=== PATIENT | female | born 1940 | race Caucasian/White ===

== ENCOUNTER 2017-01-20 17:52 | Emergency (ER) | payer MEDICARE ==
[2017-01-20] MEDS ORDERED: IPRATROPIUM/ALBUTEROL 3 ML VIAL NEB ONE (18:26)
--- NOTE | 2017-01-20 18:41 | ED.PDOC ---
History of Present Illness - General Chief Complaint: Respiratory Problem Stated Complaint: shortness of breath,sore throat Time Seen by Provider: 01/20/17 18:21 Source: patient, RN notes reviewed, Vital Signs reviewed, family - Niece- caregiver Exam Limitations: clinical condition - History of Present Illness Initial Comments: Patient is a 76 y/o female who started feeling weak for the past 3 days. Today , she has had significant shortness of breath. Patient has not had any fever or chills and denies any chest pain. She is very fatigued and has difficulty staying awake to answer questions. Patient has a history of COPD. She last had a breathing treatment at 1700. Timing/Duration: getting worse, other - 3 days Severity: severe Activities at Onset: none Possible Cause: unknown cause Improving Factors: nothing Worsening Factors: movement Associated Symptoms: cough, weakness, wheezing Respiratory Risk Factors: no cause identified Allergies/Adverse Reactions: Allergies Morphine Adverse Reaction (Verified 09/27/16 18:59) Other over sedation Home Medications: Ambulatory Orders Acetaminophen W/ Codeine [Tylenol W/ CODEINE #3] 1 ea PO TID 09/25/15 Citalopram Hydrobromide 20 mg PO DAILY 09/25/15 Digoxin [Lanoxin] 0.125 mg PO DAILY 09/25/15 Oxymorphone HCl [Opana ER (Crush Resistant] 10 mg PO Q12HR 09/25/15 Tizanidine HCl 4 mg PO TID 09/25/15 Alendronate Sodium [Fosamax] 70 mg PO WKLY 01/20/17 Atorvastatin Calcium [Lipitor] 40 mg PO BEDTIME 01/20/17 Carvedilol 6.25 mg PO BID 01/20/17 Review of Systems - Review of Systems Constitutional: Denies: chills, fever EENTM: States: no symptoms reported Respiratory: States: cough, short of breath, wheezing Cardiology: States: no symptoms reported. Denies: chest pain, edema Gastrointestinal/Abdominal: States: no symptoms reported Genitourinary: States: no symptoms reported Musculoskeletal: States: no symptoms reported Skin: States: no symptoms reported Neurological: States: weakness Endocrine: States: no symptoms reported Hematologic/Lymphatic: States: no symptoms reported All other Systems: Reviewed and Negative Past Medical History (General) - Patient Medical History Hx Seizures: No Hx Stroke: Yes - 1995 Hx Dementia: Yes Hx Asthma: No Hx of COPD: Yes Hx Cardiac Disorders: Yes - A-Fib Hx Congestive Heart Failure: No Hx Pacemaker: No Hx Hypertension: No Hx Diabetes: No Hx MRSA: No Surgical History: cholecystectomy - Vaccination History Hx Influenza Vaccination: No Hx Pneumococcal Vaccination: Yes - Social History Hx Tobacco Use: Yes Hx Alcohol Use: No Hx Substance Use: No Hx Substance Use Treatment: No Hx Depression: No Hx Physical Abuse: No Hx Emotional Abuse: No Family Medical History - Family History Mother Living Status: Hx Family Diabetes: Yes Physical Exam - Physical Exam General Appearance: Comfortable, Frail, Lethargic, Well Groomed Eyes, Ears, Nose, Throat Exam: normal ENT inspection Respiratory: chest non-tender, decreased breath sounds, accessory muscle use, rales, rhonchi, wheezing, expiration, inspiration Cardiovascular/Chest: regular rate, rhythm, no edema, no murmur Gastrointestinal/Abdominal: normal bowel sounds, non tender, soft, no organomegaly Extremity: normal inspection, no pedal edema, no calf tenderness Neurologic: disoriented x 3 - disoriented x 2 Skin Exam: pallor Progress - Results/Orders Results/Orders: 01/20/17 01/20/17 01/20/17 18:08 18:23 18:54 Temperature 96.5 F L Pulse Rate 62 Pulse Rate [ 77 Left Brachial] Respiratory 24 24 22 Rate Blood Pressure 114/82 [Left Arm] O2 Sat by Pulse 85 L 96 Oximetry 01/20/17 19:08 Temperature Pulse Rate Pulse Rate [ 70 Left Brachial] Respiratory 20 Rate Blood Pressure 94/54 [Left Arm] O2 Sat by Pulse 97 Oximetry 01/20/17 18:26 URINALYSIS Stat 01/20/17 18:30 EKG .ONCE 01/20/17 18:50 BLOOD CULTURE Stat 01/20/17 19:00 SPUTUM CULTURE Stat Laboratory Results WBC 12.4 K/mm3 (4.8-10.8) H 01/20/17 18:50 RBC 3.67 M/mm3 (4.20-5.40) L 01/20/17 18:50 Hgb 11.4 gm/dL (12.0-16.0) L 01/20/17 18:50 Hct 35.2 % (36.0-47.0) L 01/20/17 18:50 MCV 95.7 fl (81.0-99.0) 01/20/17 18:50 MCH 31.0 pg (27.0-31.0) 01/20/17 18:50 MCHC 32.4 g/dL (33.0-37.0) L 01/20/17 18:50 RDW 16.0 % (11.5-14.5) H 01/20/17 18:50 Plt Count 158 K/mm3 (130-400) 01/20/17 18:50 MPV 8.5 fl (7.40-10.4) 01/20/17 18:50 Absolute Neuts (auto) 10.70 K/uL (1.8-6.8) H 01/20/17 18:50 Absolute Lymphs (auto) 1.10 K/uL (1.0-3.4) 01/20/17 18:50 Absolute Monos (auto) 0.60 K/uL (0.2-0.8) 01/20/17 18:50 Absolute Eos (auto) 0.00 K/uL (0.0-0.4) 01/20/17 18:50 Absolute Basos (auto) 0.00 K/uL (0.0-0.1) 01/20/17 18:50 Neutrophils % 86.2 % (42.0-78.0) H 01/20/17 18:50 Lymphocytes % 9.0 % (20.0-50.0) L 01/20/17 18:50 Monocytes % 4.5 % (2.0-9.0) 01/20/17 18:50 Eosinophils % 0.1 % (1.0-5.0) L 01/20/17 18:50 Basophils % 0.2 % (0.0-2.0) 01/20/17 18:50 PT 12.4 SECONDS (9.4-12.5) 01/20/17 18:50 INR 1.100 01/20/17 18:50 PTT (SP) 29.7 SECONDS (25.1-36.5) 01/20/17 18:50 D-Dimer, Quantitative 516 ng/mL (0-230) H* 01/20/17 18:50 Sodium 132 mmol/L (135-145) L 01/20/17 18:50 Potassium 5.4 mmol/L (3.6-5.0) H 01/20/17 18:50 Chloride 99 mmol/L (101-111) L 01/20/17 18:50 Carbon Dioxide 25 mmol/L (21-31) 01/20/17 18:50 Anion Gap 13.4 (12-18) 01/20/17 18:50 BUN 68 mg/dL (7-18) H 01/20/17 18:50 Creatinine 2.32 mg/dL (0.6-1.3) H 01/20/17 18:50 BUN/Creatinine Ratio 29.3 (10-20) H 01/20/17 18:50 Random Glucose 134 mg/dL (70-105) H 01/20/17 18:50 Serum Osmolality 286.3 mOsm/L (275-295) 01/20/17 18:50 Lactic Acid 2.0 mmol/L (0.5-2.2) 01/20/17 18:50 Calcium 8.0 mg/dL (8.4-10.2) L 01/20/17 18:50 Magnesium 1.8 mg/dL (1.8-2.5) 01/20/17 18:50 Total Bilirubin 1.0 mg/dL (0.2-1.0) 01/20/17 18:50 Direct Bilirubin 0.3 mg/dL (0-0.2) H 01/20/17 18:50 Indirect Bilirubin 0.7 mg/dL (0.2-0.8) 01/20/17 18:50 AST 41 IU/L (10-42) 01/20/17 18:50 ALT 20 IU/L (10-60) 01/20/17 18:50 Alkaline Phosphatase 70 IU/L (42-121) 01/20/17 18:50 Creatine Kinase 503 IU/L (26-140) H* 01/20/17 18:50 CK-MB (CK-2) 11.7 ng/mL (0.0-4.4) H* 01/20/17 18:50 CK-MB (CK-2) % 2.33 % (0.0-4.3) 01/20/17 18:50 Troponin I 0.05 ng/mL (0.01-0.05) 01/20/17 18:50 B-Natriuretic Peptide 512.0 pg/ml (0-100) H* 01/20/17 18:50 Serum Total Protein 6.1 gm/dL (6.4-8.2) L 01/20/17 18:50 Albumin 3.0 g/dl (3.2-5.5) L 01/20/17 18:50 - EKG/XRAY/CT EKG: Sinus - 64 bpm, nonspecific ST T wave Chg, Changed from - 09/27/2016-then, tachycardia and higher voltage. Comments: NML axis, NML intervals, stable but abnormal EKG XRAY: chest - No acute process Departure - Departure Clinical Impression: Hypoxemia requiring supplemental oxygen, Hyperkalemia, Acute on chronic renal insufficiency, Elevated d-dimer, Elevated CK, Elevated CK-MB level, Hyponatremia , Neutrophilic leukocytosis Hypotension Qualifiers: Hypotension type: unspecified hypotension type Qualified Code(s): I95.9 - Hypotension, unspecified Time of Disposition: 20:00 Disposition: Transfer to Hospital Referrals: Verónica Grant NP [Primary Care Provider] - 1-2 Weeks Home Medications: Ambulatory Orders Acetaminophen W/ Codeine [Tylenol W/ CODEINE #3] 1 ea PO TID 09/25/15 Citalopram Hydrobromide 20 mg PO DAILY 09/25/15 Digoxin [Lanoxin] 0.125 mg PO DAILY 09/25/15 Oxymorphone HCl [Opana ER (Crush Resistant] 10 mg PO Q12HR 09/25/15 Tizanidine HCl 4 mg PO TID 09/25/15 Alendronate Sodium [Fosamax] 70 mg PO WKLY 01/20/17 Atorvastatin Calcium [Lipitor] 40 mg PO BEDTIME 01/20/17 Carvedilol 6.25 mg PO BID 01/20/17 Transfer to Outside Facility - Transfer Information Accepting Provider:: Dr. Mott Accepting Facility: [facility] Reason for Transfer: required specialist not available
[2017-01-20] MEDS ORDERED: SODIUM CHLORIDE 0.9% 500ML 500 ML IVS ONE (18:47)
--- NOTE | 2017-01-20 19:01 | RAD ---
EXAM DESCRIPTION: Chest,1 View CLINICAL HISTORY: Shortness of breath/hypoxia COMPARISON: September 29, 2015 FINDINGS: Cardiac silhouette is within normal limits. Aorta is tortuous. There is atherosclerosis. There is no focal parenchymal or pleural disease. There is no acute osseous process visualized. IMPRESSION: No evidence of acute cardiopulmonary disease. Electronically signed by: Reilly Elias MD 01/20/2017 7:00 PM CDT
[2017-01-20] MEDS ORDERED: NOREPINEPHRINE BITARTRATE 4 MG/4 ML VIAL IVPB ONE (19:45)
[2017-01-20] MEDS ORDERED: DEXTROSE 5% 250ML 250 ML ONE (19:46)
[2017-01-20] MEDS ORDERED: DEXTROSE 5% 1000ML 1,000 ML IVS ONE (19:48)
[2017-01-20] MEDS ORDERED: SODIUM CHLORIDE 0.9% 1000ML 1,000 ML ONE (19:58)
[2017-01-20] MEDS ORDERED: SODIUM CHLORIDE 0.9% 1000ML 1,000 ML IVS ONE (20:05)
[2017-01-20] MEDS ORDERED: DEXTROSE 5% IVPB SCH (20:30)
[2017-01-20] MEDS ORDERED: NOREPINEPHRINE BITARTRATE IVPB SCH (20:30)
[2017-01-20 21:50] VITALS: O2SAT 94
[2017-01-20 21:53] VITALS: BP 126/75; TEMP 98.2
== END 2017-01-20 20:40 | disposition short-term general hospital (02) ==
LOC: ER 17:52
DX: R09.02 Hypoxemia (principal); E87.5 Hyperkalemia; E87.1 Hypo-osmolality and hyponatremia; N18.9 Chronic kidney disease, unspecified; N28.9 Disorder of kidney and ureter, unspecified; I95.9 Hypotension, unspecified; R79.89 Other specified abnormal findings of blood chemistry; D72.828 Other elevated white blood cell count; I48.91 Unspecified atrial fibrillation; J44.9 Chronic obstructive pulmonary disease, unspecified; F03.90 Unspecified dementia, unspecified severity, without behavioral disturbance, psychotic disturbance, mood disturbance, and anxiety; Z86.73 Personal history of transient ischemic attack (TIA), and cerebral infarction without residual deficits; Z79.899 Other long term (current) drug therapy; Z88.6 Allergy status to analgesic agent
CPT/HCPCS: 36415; 71010; 80048; 80076; 82550; 82553; 83605; 83880; 84484; 85025; 85379; 85610; 85730; 87040; 87070; 93005; 94640; J7030; J7040; J7060; J7620

== ENCOUNTER 2017-01-24 17:07 | Inpatient (IN) | payer MEDICARE, OTHER ==
[2017-01-24] MEDS ORDERED: SCOPOLAMINE PATCH 1.5MG 1 EA TD PRN (18:11)
[2017-01-24] MEDS: MORPHINE SULFATE INJ 10 MG/ML VIAL IV PRN (20:52)
[2017-01-24] MEDS: ALBUTEROL SULFATE 2.5 MG/3 ML VIAL NEB PRN (21:00)
--- NOTE | 2017-01-24 22:15 | PCM.CORE ---
Physician DVT/VTE - Contraindications Mechanical Device Contraindication: Treatment not indicated - Hospice car and comfort - Nurse DVT Assessment & Total Each Risk Factor Represents 3 Points: Age over 75 years Each Risk Factor Represents 1 Point: Medical PT at Bed Rest DVT Assessment Score: 4
[2017-01-25] MEDS: MORPHINE SULFATE INJ 10 MG/ML VIAL IV SCH ×5 (00:49→20:47)
[2017-01-25] MEDS: MORPHINE SULFATE INJ 10 MG/ML VIAL IV PRN ×2 (02:20→02:24)
[2017-01-25] MEDS: SODIUM CHLORIDE 0.9% (FLUSH) 10 ML SYG IV PRN ×3 (02:25→23:48)
--- NOTE | 2017-01-25 08:30 | HP ---
SUPERVISING PHYSICIAN: Lacey Funes MD CHIEF COMPLAINT: Sepsis secondary to underlying urinary tract infection with pyelonephritis. HISTORY OF PRESENT ILLNESS: Ms. Beckett is a 76-year-old, female patient that initially was seen in the Emergency Department at [facility] on 01/20/17 with shortness of breath and respiratory issues. She was transferred to [facility] secondary to severe hypotension and concern for septic process secondary to underlying urinary tract infection. She was treated at [facility] for sepsis secondary to urinary tract infection, however, she failed to progress to any degree that provided for recovery. She was put on multiple vasopressors in an attempt to treat. However, the patient continued to show decline, remain hypotensive and eventually became essentially unresponsive. The family decided at that point that they would change from Acute Care and start hospice inpatient. They requested the patient be transferred from [facility] today to have inpatient hospice admission for care and comfort measures at [facility] as the family lives in [place]. The patient was transferred from [facility] and admitted to hospice inpatient. PAST MEDICAL HISTORY: 1. Atrial fibrillation. 2. Chronic obstructive pulmonary disease. 3. Chronic tobacco abuse. 4. Degenerative joint disease. 5. Arthritis. 6. Osteopenia. 7. Depression. 8. Abdominal aortic aneurysm measuring 3.1 cm. 9. Bilateral cataracts. 10. History of chronic pain management with Oxymorphone. PAST SURGICAL HISTORY: 1. Total hysterectomy. CURRENT MEDICATIONS: None, as the patient has been transitioned to hospice care and comfort measures only. Please refer to electronic medical record for previous home medications. ALLERGIES: MORPHINE. FAMILY HISTORY: Significant for cancer. SOCIAL HISTORY: The patient previously lived in [place] with her niece. She is since 2010. She has continued to smoke approximately one pack of cigarettes per day up until this recent illness. She had no history of alcohol usage. REVIEW OF SYSTEMS: Unobtainable secondary to the patient's condition. PHYSICAL EXAMINATION: VITAL SIGNS: On arrival, temperature 98. Pulse 102. Blood pressure 112/74. Respirations 22 and shallowing. O2 saturation 93% on nasal cannula at 3 liters. GENERAL: The patient appears very frail. She is obtunded, essentially unresponsive with very shallow respirations, but appears to be comfortable. HEENT: Unremarkable. Oropharynx appears to be moist. NECK: No jugular venous distention noted. CHEST: Breath sounds are diminished. There are no obvious wheezing or rales, but there are very shallow respirations noted. CARDIOVASCULAR: Slightly irregular rate and rhythm without murmurs, gallops, or rubs. ABDOMEN: Soft, normal bowel sounds. EXTREMITIES: There is no notable edema. NEUROLOGIC: She is unresponsive to deep pain stimulus. LABORATORY: No lab performed RADIOLOGY: No studies obtained. ASSESSMENT: 1. Hospice admission secondary to sepsis from underlying urinary tract infection, failing to respond to advanced treatment. 2. Multiple comorbidities to include atrial fibrillation. 3. Chronic obstructive pulmonary disease in patient who has chronic tobacco abuse. PLAN: The patient was transferred from [facility] and admitted directly to hospice inpatient care under the care of [facility]. She will be provided care and comfort measures under the direction of hospice nurse and Dr. Jacobo. Her prognosis is grim. Anticipate length of stay to be 1 to 5 days and once the patient has , arrangements have been made for the body to be sent to the home. Until then, we will continue to provide care and comfort measures and support for the family as needed. Hospice services are available for assistance as needed. Until then, we will continue to monitor the patient closely and treat appropriately. #[id number] [facility]
[2017-01-25] MEDS ORDERED: IV SET AND CAP CHANGE INJ INJ SCH (09:00)
[2017-01-25] MEDS: ALBUTEROL SULFATE 2.5 MG/3 ML VIAL NEB PRN ×2 (09:15→19:16)
[2017-01-25] MEDS: SODIUM CHLORIDE 0.9% (FLUSH) 10 ML SYG IV SCH ×2 (09:17→20:47)
[2017-01-26] MEDS: SODIUM CHLORIDE 0.9% (FLUSH) 10 ML SYG IV PRN ×2 (00:49→04:56)
[2017-01-26] MEDS: MORPHINE SULFATE INJ 10 MG/ML VIAL IV SCH ×6 (00:49→22:41)
[2017-01-26] MEDS: ALBUTEROL SULFATE 2.5 MG/3 ML VIAL NEB PRN ×3 (08:32→22:20)
[2017-01-26] MEDS: SODIUM CHLORIDE 0.9% (FLUSH) 10 ML SYG IV SCH ×2 (09:12→22:43)
[2017-01-27] MEDS: MORPHINE SULFATE INJ 10 MG/ML VIAL IV SCH ×10 (01:37→23:57)
[2017-01-27] MEDS: ALBUTEROL SULFATE 2.5 MG/3 ML VIAL NEB PRN ×2 (09:05→20:29)
[2017-01-27] MEDS: SODIUM CHLORIDE 0.9% (FLUSH) 10 ML SYG IV SCH ×2 (09:20→20:44)
[2017-01-28] MEDS: MORPHINE SULFATE INJ 10 MG/ML VIAL IV SCH ×9 (02:15→18:15)
[2017-01-28] MEDS: ALBUTEROL SULFATE 2.5 MG/3 ML VIAL NEB PRN ×3 (08:31→18:20)
[2017-01-28] MEDS: SODIUM CHLORIDE 0.9% (FLUSH) 10 ML SYG IV SCH (09:02)
[2017-01-28 12:34] VITALS: BP 70/47; TEMP 96.9
[2017-01-28 18:22] VITALS: O2SAT 75
== END 2017-01-28 18:30 | disposition expired | DRG 872 ==
LOC: MS 17:07
PROVIDERS: ADMIT Family Medicine; ATTEND Family Medicine
DX: A41.9 Sepsis, unspecified organism (principal); N12 Tubulo-interstitial nephritis, not specified as acute or chronic; Z51.5 Encounter for palliative care; I48.91 Unspecified atrial fibrillation; J44.9 Chronic obstructive pulmonary disease, unspecified; M19.90 Unspecified osteoarthritis, unspecified site; M85.80 Other specified disorders of bone density and structure, unspecified site; F32.9 Major depressive disorder, single episode, unspecified; I71.4 Abdominal aortic aneurysm, without rupture; G89.29 Other chronic pain; F17.210 Nicotine dependence, cigarettes, uncomplicated; Z79.891 Long term (current) use of opiate analgesic; Z88.5 Allergy status to narcotic agent; Z66 Do not resuscitate